=== PATIENT | female | born 1955 | race Caucasian/White ===

== ENCOUNTER 2016-08-07 20:57 | Emergency (ER) | payer MEDICAID ==
[~2016-08-07] VITALS: Ht 167.6 cm; Wt 62.3 kg
[~2016-08-07 20:57] MED LIST: BENZ28CR TP; DOXY100T PO; FOLI-17 PO; FURO40TA6 PO; GABA-826 PO; HYDR-3240 PO; HYDR10TA PO; LACT20SO13 PO; MULT-750 PO; RIFA550T PO; SPIR100T PO; SPIR25TA PO; SULF1TAB24 PO; THIA100T6 PO; TIZA2TAB PO
[2016-08-07] MEDS ORDERED: DIPH,PERTUSS(ACELL),TET VAC/PF 0.5 ML IM-VACC ONE (21:30)
[2016-08-07 21:34] VITALS: BP 134/69
== END 2016-08-07 23:16 | disposition home or self-care (01) ==
LOC: ED 23:00
DX: S09.90XA Unspecified injury of head, initial encounter (principal); S81.812A Laceration without foreign body, left lower leg, initial encounter; I10 Essential (primary) hypertension; F10.129 Alcohol abuse with intoxication, unspecified; W10.9XXA Fall (on) (from) unspecified stairs and steps, initial encounter; Y93.89 Activity, other specified; Y92.009 Unspecified place in unspecified non-institutional (private) residence as the place of occurrence of the external cause; Y99.8 Other external cause status
CPT/HCPCS: 70450

== ENCOUNTER 2017-01-12 15:14 | Emergency (ER) | payer MEDICAID ==
[~2017-01-12] VITALS: Ht 167.6 cm; Wt 53.3 kg
[~2017-01-12 15:14] MED LIST changes: -RIFA550T PO; +RIFA550T4 PO
[2017-01-12] MEDS ORDERED: ONDANSETRON 2MG/ML, 2ML IVPush ONE (15:30)
[2017-01-12] MEDS ORDERED: SODIUM CHLORIDE FLUSH 10ML SYR IVF ONE (15:30)
[2017-01-12] MEDS ORDERED: SODIUM CHLORIDE 0.9% 1,000ML IVBOLUS ONE (15:30)
[2017-01-12] MEDS ORDERED: HYDR50TA13 PO (16:00)
[2017-01-12] MEDS ORDERED: FURO20TA3 PO (16:00)
[2017-01-12] MEDS ORDERED: SPIR100T2 PO (16:00)
[2017-01-12 16:03] LABS: BLOOD UREA NITROGEN 12 mg/dL (7-18)
[2017-01-12 16:08] LABS: ASPARTATE AMINO TRANSFERASE 81 U/L (15-37)
[2017-01-12 16:16] LABS: HEMATOCRIT 37.5 % (34.6-47.8); HEMOGLOBIN 12.7 g/dL (11.7-16.4); WHITE BLOOD COUNT 7.6 x10^3/uL (3.4-10)
[2017-01-12 16:17] LABS: ANISOCYTOSIS 1+; POLYCHROMASIA 1+
[2017-01-12 16:19] LABS: SCHISTOCYTES 1+
[2017-01-12 18:57] VITALS: BP 115/65
== END 2017-01-12 19:58 | disposition home or self-care (01) ==
LOC: ED 16:41
DX: K92.2 Gastrointestinal hemorrhage, unspecified (principal)
CPT/HCPCS: 36415; 71010; 80053; 81001; 83880; 85025; 87077; 87086; 87186; 93005; 96360; 99285; J7030